=== PATIENT | female | born 1975 | race Caucasian/White ===

== ENCOUNTER 2017-01-28 08:42 | Emergency (ER) | payer OTHER ==
[~2017-01-28] VITALS: Ht 261.6 cm; Wt 61.2 kg
[2017-01-28 09:00] VITALS: BP 142/84
[2017-01-28] MEDS ORDERED: Ketorolac 60mg Inj IM ONE (09:00)
--- NOTE | 2017-01-28 09:08 | Emergency Room Report ---
History of Present Illness General Chief Complaint: Lower Back Pain or Injury Source: Patient Present Illness HPI 41 YOF walk-in with right lower back pain for 2 weeks. Pain is constant, 10/10 , non radiating. No urinary complaints. No hematuria. No fever/chills, abd pain, nausea/vomiting. Does not recall exacerbating activity, heavy lifting. Taking Tylenol without improvement. No other medical problems. Allergies: Coded Allergies: No Known Allergies (Unverified , 07/08/16) Patient History Past Medical History: none Past Surgical History: none Pertinent Family History: none Social History: Denies: alcohol use, drug use, smoking Last Menstrual Period: 01/14/17 Now: No : 2 Para: 2 Immunizations: UTD Reviewed Nursing Documentation: PMH: Agreed, PSxH: Agreed Nursing Documentation-PMH Past Medical History: No Stated History Review of Systems All Other Systems: negative except mentioned in HPI Physical Exam Vital Signs Date Time Temp Pulse Resp B/P Pulse Ox O2 Delivery O2 Flow Rate FiO2 01/28/17 08:44 97.7 79 16 142/84 97 Room Air Sp02 EP Interpretation: reviewed, normal General Appearance: normal inspection, well appearing, no apparent distress, alert, GCS 15, non-toxic Head: normocephalic, atraumatic Eyes: bilateral eye EOMI, bilateral eye PERRL ENT: normal ENT inspection, hearing grossly normal, normal voice Neck: normal inspection, full range of motion, supple, no bony tend Respiratory: normal inspection, lungs clear, normal breath sounds, no rhonchi, no respiratory distress, no retraction, no accessory muscle use, no wheezing, speaking full sentences Cardiovascular #1: regular rate, rhythm, no edema Gastrointestinal: normal inspection, normal bowel sounds, non tender, soft, no guarding, no hernia Genitourinary: no CVA tenderness Musculoskeletal: normal inspection, back normal, normal range of motion, Pepito' s Sign negative, other - Mild right lower paravertbeal ttp. Negative straight leg raise test bilaterally Neurologic: normal inspection, alert, oriented x3, responsive, solar designer/installer III-XII nml as tested, motor strength/tone normal, speech normal Psychiatric: normal inspection, judgement/insight normal, mood/affect normal Skin: normal inspection, normal color, no rash Lymphatic: normal inspection Medical Decision Making Diagnostic Impression: Primary Impression: Low back pain Qualified Codes: M54.5 - Low back pain Additional Impression: UTI (urinary tract infection) Qualified Codes: N30.00 - Acute cystitis without hematuria ER Course 41YOF with right lower back pain for 2 weeks VSS. Afebrile UA with +LE, 2-4WBC. no blood A: low suspicion for cord compression given well appearance, right sided paravertebral ttp for 2 weeks, no focal neuro deficits, absence of midline ttp/ masses and pain worse with movement with known exacerbating activity ?UTI Rx Macrobid to treat possible UTI Rx Ibuprofen, Robaxin Advised PMD followup DC home Last Vital Signs Date Time Temp Pulse Resp B/P Pulse Ox O2 Delivery O2 Flow Rate FiO2 01/28/17 08:44 97.7 79 16 142/84 97 Room Air Status: improved Disposition: HOME, SELF-CARE Scripts Nitrofurantoin Monohyd/M-Cryst* (MACROBID 100 MG*) 100 Mg Capsule 100 MG ORAL EVERY 12 HOURS for 7 Days, #14 CAP Prov: GEORGIANA SALVADOR M.D. 01/28/17 Methocarbamol* (ROBAXIN-750*) 750 Mg Tablet 750 MG PO TID for 7 Days, #30 TAB 0 Refills Prov: GEORGIANA SALVADOR M.D. 01/28/17 Ibuprofen* (MOTRIN*) 600 Mg Tablet 600 MG ORAL THREE TIMES A DAY for For Pain for 7 Days, #30 TAB 0 Refills Prov: GEORGIANA SALVADOR M.D. 01/28/17 GEORGIANA SALVADOR M.D. Jan 28, 2017 09:08
[2017-01-28 09:22] LABS: APPEARANCE,URINE SLIGHTLY CLOUDY; KETONES,URINE 1+ (NEGATIVE); LEUKOCYTE ESTERASE ,URINE 1+ (NEGATIVE); NITRITE,URINE NEGATIVE (NEGATIVE); PH,URINE 7 (4.5-8.0); PROTEIN,URINE 1+ (NEGATIVE); UROBILINOGEN,URINE 1 MG/DL (0.0-1.0)
[2017-01-28 09:32] LABS: AMORPHOUS SEDIMENT,UR FEW /LPF; BACTERIA,URINE FEW /HPF; RBC,URINE 0-2 /HPF (0 - 2); SQUAMOUS EPITHELIAL CELL,UR FEW /LPF (NONE/OCC)
[2017-01-28 10:00] VITALS: BP 138/81
[2017-01-28 10:10] VITALS: BP 138/81
[2017-01-28] MEDS ORDERED: IBUPROFEN600 MG ORAL (10:10)
[2017-01-28] MEDS ORDERED: NITROFURANTOIN100 M2 ORAL (10:10)
[2017-01-28] MEDS ORDERED: ROBAXIN-750750 MG PO (10:10)
== END 2017-01-28 10:10 | disposition home or self-care (01) ==
LOC: EMR 09:17
DX: N39.0 Urinary tract infection, site not specified (principal)
CPT/HCPCS: 81003; 81025; 96372; 99284

== ENCOUNTER 2017-02-25 13:24 | Emergency (ER) | payer OTHER ==
[~2017-02-25] VITALS: Ht 170.2 cm; Wt 61.2 kg
[~2017-02-25 13:24] MED LIST: IBUPROFEN600 MG ORAL; NITROFURANTOIN100 M2 ORAL; ROBAXIN-750750 MG PO
[2017-02-25 13:55] VITALS: BP 127/82
--- NOTE | 2017-02-25 14:15 | Emergency Room Report ---
History of Present Illness General Chief Complaint: Lower Back Pain or Injury Source: Patient Present Illness HPI 41 YO Female presents to the ED c/o 06/02 in severity right -sided low back pain that shoots down the leg x 1 month. Pt states rest and previously rx'd Robaxin did not help. denies new trauma or fall. pt denies hx of cancer or recent spinal procedures, denies fevers or chills. Pt. believes the initial injury last month was due to exercising too hard. Pt. has not followed up with a primary care provider. denies midline bony pain. denies weakness. Denies numbness tingling or loss of sensation or gross motor movements of the extremities, incontinence of bowel or bladder. Denies CP, Palpitations, LOC, AMS , dizziness, Changes in Vision, Sensation, paresthesias, or a sudden severe headache. Allergies: Coded Allergies: No Known Allergies (Unverified , 07/08/16) Patient History Past Medical History: see triage record Past Surgical History: none Pertinent Family History: none Last Menstrual Period: 02/10 Now: No : 2 Para: 2 Reviewed Nursing Documentation: PMH: Agreed, PSxH: Agreed Nursing Documentation-PMH Past Medical History: No Stated History Review of Systems All Other Systems: negative except mentioned in HPI Physical Exam Vital Signs Date Time Temp Pulse Resp B/P Pulse Ox O2 Delivery O2 Flow Rate FiO2 02/25/17 13:45 98.2 66 18 127/82 99 Room Air Sp02 EP Interpretation: reviewed, normal General Appearance: no apparent distress, alert, GCS 15, non-toxic Head: normocephalic, atraumatic Eyes: bilateral eye PERRL, bilateral eye normal inspection ENT: hearing grossly normal, normal pharynx, no angioedema, normal voice Neck: full range of motion, supple/symm/no masses Respiratory: lungs clear, normal breath sounds, speaking full sentences Cardiovascular #1: regular rate, rhythm, no edema Gastrointestinal: normal bowel sounds, non tender, soft, no guarding, no rebound Rectal: deferred Genitourinary: normal inspection, no CVA tenderness Musculoskeletal: back normal, gait/station normal, normal range of motion, tender - right paraspinal ttp mostly in upper right glute and lumbar area, no midline spinal ttp, no left sided ttp, no obvious deformity, erythema, or step- off. Neurologic: alert, oriented x3, responsive, motor strength/tone normal, sensory intact, speech normal, other - no weakness Psychiatric: judgement/insight normal, memory normal, mood/affect normal Skin: normal color, no rash, warm/dry, well hydrated Medical Decision Making PA Attestation Dr. Tapia is my supervising Physician whom patient management has been discussed with. Diagnostic Impression: Primary Impression: Sciatica of right side ER Course 41 YO Female presents to the ED c/o 06/02 in severity right -sided low back pain that shoots down the leg x 1 month. Pt states rest and previously rx'd robaxin did not help. denies new trauma or fall. pt denies hx of cancer or recent spinal procedures, denies fevers or chills. Pt. believes the initial injury last month was due to exercising too hard. Pt. has not followed up with a primary care provider. denies midline bony pain. Denies numbness tingling or loss of sensation or gross motor movements of the extremities, incontinence of bowel or bladder. Denies CP, Palpitations, LOC, AMS, dizziness, Changes in Vision, Sensation, paresthesias, or a sudden severe headache. Ddx considered but are not limited to Fracture, dislocation, contusion, epidural abscess, Sprain/Strain/Spasm Vital signs: are WNL, pt. is afebrile H&PE are most consistent with sciatica - Pt able to tolerate straight leg raise. ORDERS: X-ray not required at this time, no spinous process tenderness ED INTERVENTIONS: d/w pt. that she is stable for close outpatient follow up with PCP, and recommend MRI. DISCHARGE: At this time pt. is stable for d/c to home. Will provide printed patient care instructions, and any necessary prescriptions. Care plan and follow up instructions have been discussed with the patient prior to discharge. Last Vital Signs Date Time Temp Pulse Resp B/P Pulse Ox O2 Delivery O2 Flow Rate FiO2 02/25/17 13:45 98.2 66 18 127/82 99 Room Air Disposition: HOME, SELF-CARE Condition: Stable Scripts Acetaminophen* (TYLENOL EXTRA STRENGTH*) 500 Mg Tablet 500 MG ORAL Q6H, #20 TAB 0 Refills Prov: Bianca Bueno.Ottoniel 02/25/17 Cyclobenzaprine Hcl* (FLEXERIL*) 10 Mg Tablet 10 MG ORAL THREE TIMES A DAY for 7 Days, #21 TAB Prov: Bianca Bueno 02/25/17 Carisoprodol* (SOMA*) 350 Mg Tablet 350 MG PO QHS, #2 TAB Prov: Bianca Bueno 02/25/17 Patient Instructions: Sciatica Additional Instructions: Take medications as directed. Follow up with PCP in 3-5 days, MRI is recommended as conservative therapy has not provided relief of symptoms. Return sooner to ED if new symptoms occur, or current symptoms become worse. Do not drink alcohol, drive, or operate heavy machinery while taking Muscle relaxers as this may cause drowsiness. - Please note that this Emergency Department Report was dictated using [email or web address] lead technology software, occasionally this can lead to erroneous entry secondary to interpretation by the dictation equipment. Bianca Bueno Feb 25, 2017 14:15
[2017-02-25] MEDS ORDERED: TYLENOL EXTRA500 MG ORAL (14:17)
[2017-02-25] MEDS ORDERED: CYCLOBENZAPRINE10 MG ORAL (14:17)
[2017-02-25] MEDS ORDERED: SOMA350 MG PO (14:17)
[2017-02-25 14:23] VITALS: BP 127/82
== END 2017-02-25 14:23 | disposition home or self-care (01) ==
LOC: EMR 14:15
DX: M54.31 Sciatica, right side (principal)
CPT/HCPCS: 99284